=== PATIENT | female | born 1975 | race Caucasian/White ===

== ENCOUNTER → 2022-03-21 12:46 | Outpatient (CLI) | payer OTHER, SELFPAY ==
--- NOTE | 2022-03-21 13:02 | DI.RAD.S_ITS ---
PROCEDURE: XR WRIST LT MIN 3V INDICATIONS: Left wrist pain TECHNIQUE: 4 views of the wrist were acquired. COMPARISON: None. FINDINGS: Bones: No fractures or dislocations. No suspicious bony lesions. Scaphoid view: No visualized fracture. Soft tissues: No suspicious soft tissue calcifications. IMPRESSION: No visualized acute fracture or dislocation. However, if clinical concern and/or pain persist, short interval imaging followup in 7-10 days is recommended, as occult injury cannot be definitively excluded. Dictated by: Rosio Freedman M.D. on 03/21/2022 at 16:11 Approved by: Rosio Freedman M.D. on 03/21/2022 at 16:12
== END ==
PROVIDERS: Referring Provider Internal Medicine; Visit Provider Internal Medicine
DX: M25.532 Pain in left wrist (principal)
CPT/HCPCS: 73110